=== PATIENT | female | born 1940 | race Caucasian/White ===

== ENCOUNTER 2019-03-06 01:47 | Emergency (ER) | payer MEDICARE, MEDICAID ==
[~2019-03-06] VITALS: Ht 162.6 cm; Wt 68.0 kg
[~2019-03-06 01:47] MED LIST: ALPR-624 PO; ASPI-1264 PO; CLOP75TA35 PO; GLYB-97 PO; HCTZ25T PO; HYDR-4383 PO; LEVO100T PO; LOSA100T13 PO; METH4TAB81 PO; NOR5T PO; ROSU10TA2 PO; SITA1TAB10 PO; VITC500T PO
[2019-03-06] MEDS ORDERED: morphine 4 MG/ML inj SYRINge IV ONE (01:55)
[2019-03-06] MEDS ORDERED: ondansetron/PF 4mg/2ml inj IV ONE (01:55)
[2019-03-06] MEDS ORDERED: iohexol 300mg/ml 100ml inj. ONE (01:56)
--- NOTE | 2019-03-06 03:09 | NUR ---
DEANGELO ROMERO MADE AWARE CT IS BACK. NO NEW ORDERS
--- NOTE | 2019-03-06 03:15 | NUR ---
[facility] CALLED OFF PER DR ROMERO
[2019-03-06] MEDS ORDERED: ONDA4TAB6 PO (03:16)
[2019-03-06] MEDS ORDERED: HYDR-3965 PO (03:16)
[2019-03-06 03:54] VITALS: BP 135/48
== END 2019-03-06 03:31 | disposition home or self-care (01) ==
LOC: ER 01:48
DX: S30.1XXA Contusion of abdominal wall, initial encounter (principal); S20.219A Contusion of unspecified front wall of thorax, initial encounter; I25.10 Atherosclerotic heart disease of native coronary artery without angina pectoris; I10 Essential (primary) hypertension; J44.9 Chronic obstructive pulmonary disease, unspecified; E11.9 Type 2 diabetes mellitus without complications; G89.29 Other chronic pain; Z98.61 Coronary angioplasty status; Z98.890 Other specified postprocedural states; Z88.2 Allergy status to sulfonamides; Z88.8 Allergy status to other drugs, medicaments and biological substances; Z79.82 Long term (current) use of aspirin; Z79.899 Other long term (current) drug therapy; W18.39XA Other fall on same level, initial encounter; Y93.89 Activity, other specified; Y92.009 Unspecified place in unspecified non-institutional (private) residence as the place of occurrence of the external cause; Y99.8 Other external cause status
CPT/HCPCS: 71260; 74177; 96374; 96375; 99284; J2270; J2405; Q9967

== ENCOUNTER 2021-12-11 10:49 | Inpatient (IN) | payer MEDICARE, MEDICAID ==
[~2021-12-11] VITALS: Ht 160 cm; Wt 65.8 kg
[~2021-12-11 10:49] MED LIST changes: -ALPR-624 PO; -ASPI-1264 PO; +CLOP75TA34 PO; -CLOP75TA35 PO; +DOXA4TAB3 PO; +FURO-150 PO; -GLYB-97 PO; -HCTZ25T PO; +INSU100I25 SQ; -LEVO100T PO; +LEVO88TA7 PO; -METH4TAB81 PO; -NOR5T PO; +PIOG45TA65 PO; +SERT25TA PO; -VITC500T PO
[2021-12-11 11:12] LABS: BASOPHILS # (AUTO) 0.1 X10'3 (0-0.2); BASOPHILS % (AUTO) 0.8 % (0-1); EOSINOPHILS # (AUTO) 0.1 X10'3 (0-0.9); EOSINOPHILS % (AUTO) 0.8 % (0-6); HEMATOCRIT 29.4 % (35.0-45.0); HEMOGLOBIN 9.3 g/dl (12.0-16.0); LYMPHOCYTES # (AUTO) 0.5 X10'3 (1.1-4.8); LYMPHOCYTES % (AUTO) 4.6 % (21-51); MEAN CORPUSCULAR HEMOGLOBIN 29.6 PG (27.0-31.0); MEAN CORPUSCULAR HGB CONC 31.7 g/dL (33.0-36.5); MEAN CORPUSCULAR VOLUME 93.4 FL (78-98); MEAN PLATELET VOLUME 8.1 FL (7.4-10.4); MONOCYTES # (AUTO) 0.8 X10'3 (0-0.9); MONOCYTES % (AUTO) 7.2 % (2-12); NEUTROPHILS # (AUTO) 9.8 X10'3 (1.8-7.7); NEUTROPHILS % (AUTO) 86.6 % (42-75); PLATELET COUNT 437 X10'3 (140-440); RED BLOOD COUNT 3.15 X10'6 (4.20-5.60); RED CELL DISTRIBUTION WIDTH 15.7 % (11.5-14.5); WHITE BLOOD COUNT 11.3 X10'3 (4.5-11.0)
[2021-12-11 11:24] LABS: ALANINE AMINOTRANSFERASE 18 U/L (12-78); ALBUMIN 2.5 G/DL (3.4-5.0); ALBUMIN/GLOBULIN RATIO 0.5 (1.1-1.5); ALKALINE PHOSPHATASE 72 IU/L (46-116); ANION GAP 2 (8-16); ASPARTATE AMINO TRANSFERASE 12 U/L (10-37); BILIRUBIN,TOTAL 0.2 MG/DL (0.1-1.0); BLOOD UREA NITROGEN 26 MG/DL (7-18); BUN/CREATININE RATIO 21.3 (6.6-38.0); CALCIUM 9.9 MG/DL (8.5-10.1); CHLORIDE 98 MMOL/L (99-107); CREATININE 1.22 MG/DL (0.40-0.90); GLUCOSE 156 MG/DL (70-104); POTASSIUM 4.9 MMOL/L (3.5-5.1); SODIUM 134 MMOL/L (135-145); TOTAL CARBON DIOXIDE 33.9 MMOL/L (24-32); TOTAL PROTEIN 7.1 G/DL (6.4-8.2); eGFR 42 ML/MIN
[2021-12-11] MEDS ORDERED: iohexol 350MG/ML 100ml bottle IV ONE (12:41)
[2021-12-11] MEDS ORDERED: azithromycin/NS 500mg/250ml 250 ML IV ONE (13:45)
[2021-12-11] MEDS ORDERED: CefTRIAXone/D5W-Rocephin 1gm 50 ML IV ONE (13:45)
[2021-12-11] MEDS ORDERED: furosemide 10 MG/1 ML 10ml inj IV ONE (13:55)
[2021-12-11] MEDS ORDERED: potassium Cl 20 mEq SR tablet PO PRN ×2 (14:00)
[2021-12-11] MEDS ORDERED: HYDROcodone/acetaminophen 5mg/325mg tablet PO PRN (14:00)
[2021-12-11] MEDS ORDERED: potassium Cl 40MEQ/1/2NS 520ml 520 ML IV PRN (14:00)
[2021-12-11] MEDS ORDERED: bisacodyl 10mg suppository rectal RC PRN (14:00)
[2021-12-11] MEDS ORDERED: ondansetron/PF 4mg/2ml inj IV PRN (14:00)
[2021-12-11] MEDS ORDERED: magnesium 4gm in 100ml NS 100 ML IV PRN (14:00)
[2021-12-11] MEDS ORDERED: magnesium hydroxide 30ml (MOM) UD suspension PO PRN (14:00)
[2021-12-11] MEDS ORDERED: morphine 2 MG/ML inj. syringe IV PRN ×2 (14:00)
[2021-12-11] MEDS ORDERED: magnesium Cl slow-release 64mg tablet PO PRN (14:00)
[2021-12-11] MEDS ORDERED: diphenhydrAMINE 25mg capsule PO PRN (14:00)
[2021-12-11] MEDS ORDERED: ondansetron 4mg rapidly disintigrating tab PO PRN (14:00)
[2021-12-11] MEDS ORDERED: acetaminophen 650mg rectal suppository RC PRN (14:00)
[2021-12-11] MEDS ORDERED: ipratropium/albuterol 3ml nebule NEB PRN (14:00)
[2021-12-11] MEDS ORDERED: acetaminophen 325mg tablet PO PRN ×2 (14:00)
[2021-12-11] MEDS ORDERED: mag hydrox/Alum hydrox/simeth 30ml oral suspension PO PRN (14:00)
--- NOTE | 2021-12-11 15:25 | NUR ---
placed pt on pure wick at this time for I&O accuracy. vitally stable with 02 sat ranging from 84-91 at this time on 6L nasal canula, will reasses in one hour post lasix
[2021-12-11 16:03] LABS: MAGNESIUM 1.9 MG/DL (1.5-2.4)
[2021-12-11] MEDS ORDERED: OXYC1TAB17 PO (16:55)
[2021-12-11] MEDS ORDERED: AMIO200T61 PO (16:55)
[2021-12-11] MEDS ORDERED: CLON0.1T PO (16:55)
[2021-12-11] MEDS ORDERED: ONDA-103 PO (16:55)
[2021-12-11] MEDS ORDERED: SERT-433 PO (16:55)
[2021-12-11] MEDS ORDERED: AMLO5TAB16 PO (16:55)
[2021-12-11] MEDS ORDERED: GLIP5TAB13 PO (16:55)
[2021-12-11] MEDS ORDERED: METO5TAB98 PO (16:55)
[2021-12-11] MEDS ORDERED: INSU100V11 SQ (16:55)
[2021-12-11] MEDS ORDERED: POLY119P2 PO (17:03)
[2021-12-11] MEDS ORDERED: LACT10SO3 PO (17:03)
[2021-12-11] MEDS ORDERED: MICO57CR2 TP (17:03)
[2021-12-11] MEDS ORDERED: SENN8.6T19 PO (17:03)
[2021-12-11] MEDS ORDERED: BISA10SU60 RC (17:03)
[2021-12-11] MEDS ORDERED: sennosides 8.6mg tablet PO PRN (18:00)
[2021-12-11] MEDS ORDERED: cloNIDine 0.1 mg tablet PO PRN (18:00)
[2021-12-11] MEDS: HYDROcodone/acetaminophen 10/325mg tab PO PRN ×2 (18:09→23:30)
[2021-12-11 19:31] LABS: HEMOGLOBIN A1C 7.8 % (4.5-6.2)
[2021-12-11] MEDS: amiodarone 200mg tablet PO SCH (19:36)
[2021-12-11] MEDS: docusate sod 100mg capsule PO SCH (19:36)
[2021-12-11] MEDS: furosemide 40mg/4ml inj IV SCH (19:36)
[2021-12-11] MEDS: K and/or MAG REPLACEMENT MC SCH (19:38)
[2021-12-11] MEDS ORDERED: temazepam 15mg capsule PO PRN (21:00)
[2021-12-12] VITALS (8 sets, daily range): BP systolic 141–179; BP diastolic 49–63
[2021-12-12] MEDS: HYDROcodone/acetaminophen 10/325mg tab PO PRN ×5 (03:33→23:12)
[2021-12-12 06:22] LABS: BASOPHILS # (AUTO) 0.1 X10'3 (0-0.2); BASOPHILS % (AUTO) 1.1 % (0-1); EOSINOPHILS # (AUTO) 0.1 X10'3 (0-0.9); EOSINOPHILS % (AUTO) 0.9 % (0-6); HEMATOCRIT 27.7 % (35.0-45.0); HEMOGLOBIN 9.1 g/dl (12.0-16.0); LYMPHOCYTES # (AUTO) 0.8 X10'3 (1.1-4.8); LYMPHOCYTES % (AUTO) 9.3 % (21-51); MEAN CORPUSCULAR HEMOGLOBIN 29.7 PG (27.0-31.0); MEAN CORPUSCULAR HGB CONC 32.7 g/dL (33.0-36.5); MEAN PLATELET VOLUME 8.1 FL (7.4-10.4); MONOCYTES # (AUTO) 0.7 X10'3 (0-0.9); MONOCYTES % (AUTO) 9.1 % (2-12); NEUTROPHILS # (AUTO) 6.5 X10'3 (1.8-7.7); NEUTROPHILS % (AUTO) 79.6 % (42-75); PLATELET COUNT 428 X10'3 (140-440); RED BLOOD COUNT 3.05 X10'6 (4.20-5.60); RED CELL DISTRIBUTION WIDTH 15.4 % (11.5-14.5); WHITE BLOOD COUNT 8.2 X10'3 (4.5-11.0)
[2021-12-12 06:34] LABS: ALANINE AMINOTRANSFERASE 15 U/L (12-78); ALBUMIN 2.3 G/DL (3.4-5.0); ALBUMIN/GLOBULIN RATIO 0.6 (1.1-1.5); ALKALINE PHOSPHATASE 67 IU/L (46-116); ANION GAP 4 (8-16); ASPARTATE AMINO TRANSFERASE 11 U/L (10-37); BILIRUBIN,TOTAL 0.3 MG/DL (0.1-1.0); BLOOD UREA NITROGEN 23 MG/DL (7-18); BUN/CREATININE RATIO 17.8 (6.6-38.0); CALCIUM 9.3 MG/DL (8.5-10.1); CHLORIDE 98 MMOL/L (99-107); CREATININE 1.29 MG/DL (0.40-0.90); GLUCOSE 169 MG/DL (70-104); MAGNESIUM 1.9 MG/DL (1.5-2.4); POTASSIUM 3.8 MMOL/L (3.5-5.1); SODIUM 137 MMOL/L (135-145); TOTAL CARBON DIOXIDE 35.1 MMOL/L (24-32); TOTAL PROTEIN 6.4 G/DL (6.4-8.2); eGFR 40 ML/MIN
--- NOTE | 2021-12-12 06:53 | NUR ---
Patient in room PCU 3019. I have received report from Sushma KULKARNI and had the opportunity to ask questions and assume patient care.
[2021-12-12] MEDS: amiodarone 200mg tablet PO SCH ×3 (07:58→20:15)
[2021-12-12] MEDS: levoTHYROXINE 88mcg tablet PO SCH ×2 (07:58→08:25)
[2021-12-12] MEDS: docusate sod 100mg capsule PO SCH ×2 (07:58→19:53)
[2021-12-12] MEDS: losartan 50mg tablet PO SCH (07:59)
[2021-12-12] MEDS: polyethylene glycol 3350 17gm powd pack PO SCH (07:59)
[2021-12-12] MEDS: amLODIPine 5mg tablet PO SCH (08:00)
[2021-12-12] MEDS: clopidogrel 75mg tablet PO SCH (08:00)
[2021-12-12] MEDS ORDERED: sertraline 50mg tablet PO SCH (08:00)
[2021-12-12] MEDS: K and/or MAG REPLACEMENT MC SCH (08:00)
[2021-12-12] MEDS: furosemide 40mg/4ml inj IV SCH ×2 (08:38→13:00)
[2021-12-12] MEDS: CefTRIAXone/D5W-Rocephin 1gm 50 ML IV SCH (08:38)
[2021-12-12] MEDS: azithromycin/NS 500mg/250ml 250 ML IV SCH (10:01)
[2021-12-12] MEDS ORDERED: glucagon, human recombinant 1mg kit SUBCUT PRN (11:40)
[2021-12-12] MEDS ORDERED: MESSAGE TO PHARMACY PO ONE (11:40)
[2021-12-12] MEDS ORDERED: dextrose 50%-water 50ml dispensing syringe IV PRN ×2 (11:40)
[2021-12-12] MEDS ORDERED: DEXTROSE 15 GM of carb/4 tabs (each vial/BOTTLE has 4 tablets) PO PRN ×2 (11:40)
--- NOTE | 2021-12-12 12:18 | NUR ---
Malnutrition/DM Consults: Pt admit DX acute respiratory failure, COPD, and bilateral pleural effusions per EMR. 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 Pt w/ mild weakness, no edema/wounds, appears WD/WN per MD note, and PO 100% first heart healthy/fluid-restricted meal this AM per EMR. Pending scaled wt this admit though current reported wt 4kg higher than bed scaled wt recent prior admit August this year per EMR. Pt lacks minimum malnutrition criteria at this time. Pt hx DM A1C 7.8% appropriate given age. Will monitor for nutrition intervention needs this admit. Addendum: 12/12/21 at [address] Amended: Links added.
[2021-12-12 12:44] LABS: BODY FLUID PH (NON-PLEURAL) 7.5
[2021-12-12 13:07] LABS: GLUCOSE,BODY FLUID 213 MG/DL; LDH,BODY FLUID 61 U/L; TOTAL PROTEIN,BODY FLUID 2.1 G/DL
[2021-12-12 13:23] LABS: BFAPPEAR HAZY
[2021-12-12 13:24] LABS: BF RBC COUNT 74 /CU MM; BF WBC COUNT 68 /CU MM (0-1000); BFCOLOR YELLOW; BFVOLUME 60 ML
[2021-12-12 13:27] LABS: EOSINOPHILS,BODY FLUID 1 %; LYMPHOCYTES,BODY FLUID 58 %; MONOCYTES,BODY FLUID 23 %; NEUTROPHILS,BODY FLUID 18 %
[2021-12-12] MEDS: insulin Lispro (HumaLOG) vial - multi-dose SQ SCH ×2 (13:55→19:52)
--- NOTE | 2021-12-12 18:30 | NUR ---
Patient in room PCU 3019. I have received report from Danielle and had the opportunity to ask questions and assume patient care.
--- NOTE | 2021-12-12 18:59 | NUR ---
Problems reprioritized. Patient report given, questions answered & plan of care reviewed with Roslyn Merlos, patient stable at transfer of care.
[2021-12-12] MEDS: insulin glargine (Lantus) pen - multi-dose SQ SCH (19:53)
--- NOTE | 2021-12-12 20:19 | NUR ---
Called and spoke with Dr. Rebolledo due to amiodarone po to be given and hr 51. No parameters present. stated ok to give amiodarone po. Addendum: 12/12/21 at 2306 by Arturo Crocker RN Called and spoke with Dr. Rebolledo due to bp 179/61, hr 50 and not within parameters to given prn clonidine. Also explained to that pt is wanting [place] 10/325 but no hr parameter to give. stated ok to give clonidine x1 dose as well as Norco10/325.
[2021-12-13] MEDS: K and/or MAG REPLACEMENT MC SCH ×3 (01:15→20:35)
[2021-12-13 02:00] VITALS: BP 137/54
[2021-12-13 06:07] LABS: BASOPHILS # (AUTO) 0.1 X10'3 (0-0.2); EOSINOPHILS # (AUTO) 0.2 X10'3 (0-0.9); EOSINOPHILS % (AUTO) 3.2 % (0-6); HEMATOCRIT 28.8 % (35.0-45.0); HEMOGLOBIN 9.1 g/dl (12.0-16.0); LYMPHOCYTES # (AUTO) 1.1 X10'3 (1.1-4.8); LYMPHOCYTES % (AUTO) 14.5 % (21-51); MEAN CORPUSCULAR HGB CONC 31.6 g/dL (33.0-36.5); MEAN CORPUSCULAR VOLUME 91.9 FL (78-98); MONOCYTES # (AUTO) 0.9 X10'3 (0-0.9); MONOCYTES % (AUTO) 11.9 % (2-12); NEUTROPHILS # (AUTO) 5.2 X10'3 (1.8-7.7); NEUTROPHILS % (AUTO) 69.4 % (42-75); PLATELET COUNT 453 X10'3 (140-440); RED BLOOD COUNT 3.13 X10'6 (4.20-5.60); RED CELL DISTRIBUTION WIDTH 15.1 % (11.5-14.5); WHITE BLOOD COUNT 7.5 X10'3 (4.5-11.0)
--- NOTE | 2021-12-13 06:20 | NUR ---
Problems reprioritized. Patient report given, questions answered & plan of care reviewed with Donte. Pt sleeping and in no acute distress at time of handoff.
[2021-12-13 06:33] LABS: ALANINE AMINOTRANSFERASE 15 U/L (12-78); ALBUMIN 2.3 G/DL (3.4-5.0); ALBUMIN/GLOBULIN RATIO 0.6 (1.1-1.5); ALKALINE PHOSPHATASE 63 IU/L (46-116); ANION GAP 2 (8-16); ASPARTATE AMINO TRANSFERASE 12 U/L (10-37); BILIRUBIN,TOTAL 0.2 MG/DL (0.1-1.0); BLOOD UREA NITROGEN 25 MG/DL (7-18); BUN/CREATININE RATIO 17.4 (6.6-38.0); CALCIUM 9.7 MG/DL (8.5-10.1); CHLORIDE 98 MMOL/L (99-107); CREATININE 1.44 MG/DL (0.40-0.90); GLUCOSE 96 MG/DL (70-104); MAGNESIUM 2.1 MG/DL (1.5-2.4); PHOSPHORUS 3.8 MG/DL (2.3-4.5); POTASSIUM 3.8 MMOL/L (3.5-5.1); SODIUM 137 MMOL/L (135-145); TOTAL CARBON DIOXIDE 36.7 MMOL/L (24-32); TOTAL PROTEIN 6.4 G/DL (6.4-8.2); eGFR 35 ML/MIN
[2021-12-13 07:07] VITALS: BP 98/56
[2021-12-13] MEDS: amLODIPine 5mg tablet PO SCH (08:00)
[2021-12-13] MEDS: levoTHYROXINE 88mcg tablet PO SCH (08:04)
[2021-12-13] MEDS: losartan 50mg tablet PO SCH (08:04)
[2021-12-13] MEDS: amiodarone 200mg tablet PO SCH ×2 (08:04→20:48)
[2021-12-13] MEDS: clopidogrel 75mg tablet PO SCH (08:04)
[2021-12-13] MEDS: docusate sod 100mg capsule PO SCH ×2 (08:05→20:48)
[2021-12-13] MEDS: polyethylene glycol 3350 17gm powd pack PO SCH (08:05)
[2021-12-13] MEDS: sertraline 25mg tablet PO SCH (08:05)
[2021-12-13] MEDS: furosemide 40mg/4ml inj IV SCH ×2 (08:05→20:48)
[2021-12-13] MEDS: HYDROcodone/acetaminophen 10/325mg tab PO PRN ×4 (08:11→20:56)
[2021-12-13] MEDS: CefTRIAXone/D5W-Rocephin 1gm 50 ML IV SCH (08:11)
[2021-12-13] MEDS: azithromycin/NS 500mg/250ml 250 ML IV SCH (08:12)
[2021-12-13 11:00] VITALS: BP 110/52
[2021-12-13 15:00] VITALS: BP 132/61
[2021-12-13 18:00] VITALS: BP 95/41
[2021-12-13] MEDS: insulin Lispro (HumaLOG) vial - multi-dose SQ SCH (20:47)
[2021-12-13 22:03] VITALS: BP 107/55
[2021-12-13] MEDS: insulin glargine (Lantus) pen - multi-dose SQ SCH (22:51)
[2021-12-14 01:41] VITALS: BP 109/49
[2021-12-14] MEDS: HYDROcodone/acetaminophen 10/325mg tab PO PRN ×3 (01:51→12:24)
[2021-12-14 07:00] VITALS: BP 174/61
[2021-12-14] MEDS: CefTRIAXone/D5W-Rocephin 1gm 50 ML IV SCH (07:09)
[2021-12-14] MEDS: furosemide 40mg/4ml inj IV SCH (07:09)
[2021-12-14] MEDS: amiodarone 200mg tablet PO SCH (07:10)
[2021-12-14] MEDS: clopidogrel 75mg tablet PO SCH (07:10)
[2021-12-14] MEDS: losartan 50mg tablet PO SCH (07:11)
[2021-12-14] MEDS: polyethylene glycol 3350 17gm powd pack PO SCH (07:12)
[2021-12-14] MEDS: levoTHYROXINE 88mcg tablet PO SCH (07:12)
[2021-12-14] MEDS: sertraline 25mg tablet PO SCH (07:12)
[2021-12-14] MEDS: amLODIPine 5mg tablet PO SCH (07:12)
[2021-12-14] MEDS: azithromycin/NS 500mg/250ml 250 ML IV SCH (07:13)
[2021-12-14] MEDS: docusate sod 100mg capsule PO SCH (07:13)
[2021-12-14 08:13] LABS: BASOPHILS # (AUTO) 0.1 X10'3 (0-0.2); BASOPHILS % (AUTO) 1.2 % (0-1); EOSINOPHILS # (AUTO) 0.2 X10'3 (0-0.9); EOSINOPHILS % (AUTO) 2.6 % (0-6); HEMOGLOBIN 9.9 g/dl (12.0-16.0); LYMPHOCYTES # (AUTO) 0.9 X10'3 (1.1-4.8); LYMPHOCYTES % (AUTO) 11.8 % (21-51); MEAN CORPUSCULAR HEMOGLOBIN 29.9 PG (27.0-31.0); MEAN CORPUSCULAR HGB CONC 32.8 g/dL (33.0-36.5); MEAN CORPUSCULAR VOLUME 91.3 FL (78-98); MEAN PLATELET VOLUME 7.8 FL (7.4-10.4); MONOCYTES # (AUTO) 0.8 X10'3 (0-0.9); MONOCYTES % (AUTO) 10.6 % (2-12); NEUTROPHILS # (AUTO) 5.6 X10'3 (1.8-7.7); NEUTROPHILS % (AUTO) 73.8 % (42-75); PLATELET COUNT 528 X10'3 (140-440); RED BLOOD COUNT 3.29 X10'6 (4.20-5.60); RED CELL DISTRIBUTION WIDTH 15.3 % (11.5-14.5); WHITE BLOOD COUNT 7.6 X10'3 (4.5-11.0)
[2021-12-14 08:33] LABS: ALANINE AMINOTRANSFERASE 15 U/L (12-78); ALBUMIN 2.5 G/DL (3.4-5.0); ALBUMIN/GLOBULIN RATIO 0.6 (1.1-1.5); ALKALINE PHOSPHATASE 69 IU/L (46-116); ANION GAP 6 (8-16); ASPARTATE AMINO TRANSFERASE 14 U/L (10-37); BILIRUBIN,TOTAL 0.2 MG/DL (0.1-1.0); BLOOD UREA NITROGEN 22 MG/DL (7-18); BUN/CREATININE RATIO 16.1 (6.6-38.0); CALCIUM 9.7 MG/DL (8.5-10.1); CHLORIDE 96 MMOL/L (99-107); CREATININE 1.37 MG/DL (0.40-0.90); GLUCOSE 126 MG/DL (70-104); PHOSPHORUS 3.7 MG/DL (2.3-4.5); POTASSIUM 3.5 MMOL/L (3.5-5.1); SODIUM 137 MMOL/L (135-145); TOTAL CARBON DIOXIDE 34.8 MMOL/L (24-32); eGFR 37 ML/MIN
[2021-12-14] MEDS: K and/or MAG REPLACEMENT MC SCH (08:55)
[2021-12-14 11:00] VITALS: BP 131/63
[2021-12-14] MEDS: insulin Lispro (HumaLOG) vial - multi-dose SQ SCH (12:23)
--- NOTE | 2021-12-14 15:34 | NUR ---
Called report to SHAD Zimmer at [facility]. Pt Be transported Via BLS. Given IV Zolfran prior to transport. IV access removed.
== END 2021-12-14 15:38 | DRG 193 ==
LOC: ER 10:49 → ED HOLD 14:07 → PCU 3S 12-12 01:50
PROVIDERS: ADMIT Family Medicine; ATTEND Family Medicine
PROC: B32T1ZZ Computerized Tomography (CT Scan) of Left Pulmonary Artery using Low Osmolar Contrast (ICD-10-PCS; 2021-12-11)
PROC: B3201ZZ Computerized Tomography (CT Scan) of Thoracic Aorta using Low Osmolar Contrast (ICD-10-PCS; 2021-12-11)
PROC: B32S1ZZ Computerized Tomography (CT Scan) of Right Pulmonary Artery using Low Osmolar Contrast (ICD-10-PCS; 2021-12-11)
PROC: 0W9B3ZX Drainage of Left Pleural Cavity, Percutaneous Approach, Diagnostic (ICD-10-PCS; principal; 2021-12-12)
PROC: 0W993ZX Drainage of Right Pleural Cavity, Percutaneous Approach, Diagnostic (ICD-10-PCS; 2021-12-12)
DX: J18.9 Pneumonia, unspecified organism (principal); J96.01 Acute respiratory failure with hypoxia; I13.0 Hypertensive heart and chronic kidney disease with heart failure and stage 1 through stage 4 chronic kidney disease, or unspecified chronic kidney disease; I50.30 Unspecified diastolic (congestive) heart failure; J44.0 Chronic obstructive pulmonary disease with (acute) lower respiratory infection; J44.1 Chronic obstructive pulmonary disease with (acute) exacerbation; N17.9 Acute kidney failure, unspecified; J91.8 Pleural effusion in other conditions classified elsewhere; Z20.822 Contact with and (suspected) exposure to COVID-19; E03.9 Hypothyroidism, unspecified; F32.A Depression, unspecified; G89.29 Other chronic pain; E11.22 Type 2 diabetes mellitus with diabetic chronic kidney disease; E11.51 Type 2 diabetes mellitus with diabetic peripheral angiopathy without gangrene; E78.00 Pure hypercholesterolemia, unspecified; I25.10 Atherosclerotic heart disease of native coronary artery without angina pectoris; M81.0 Age-related osteoporosis without current pathological fracture; N18.9 Chronic kidney disease, unspecified; Z86.73 Personal history of transient ischemic attack (TIA), and cerebral infarction without residual deficits; Z87.81 Personal history of (healed) traumatic fracture; Z87.891 Personal history of nicotine dependence; Z88.2 Allergy status to sulfonamides; Z88.8 Allergy status to other drugs, medicaments and biological substances; Z79.02 Long term (current) use of antithrombotics/antiplatelets
CPT/HCPCS: 32555; 36415; 71045; 71275; 80053; 82945; 82948; 83036; 83605; 83615; 83735; 83880; 83986; 84100; 84132; 84145; 84157; 84484; 85025; 85379; 87040; 87070; 87081; 87635; 87811; 89051; 93005; 93306; 94760; 96374; 97161; 97530; 99285; A6213; A6250; C9803; G0378; J0456; J0696; J1815; J1940; J2270; J2405; J3490; J7040; Q9967

== ENCOUNTER 2022-08-09 10:30 | Emergency (ER) | payer MEDICARE, MEDICAID ==
[~2022-08-09] VITALS: Ht 160 cm; Wt 65.0 kg
[~2022-08-09 10:30] MED LIST changes: +AMI200T PO; +AMLO5TAB16 PO; +BISA10SU60 RC; +CLON0.1T PO; -DOXA4TAB3 PO; -FURO-150 PO; +GLIP5TAB13 PO; -HYDR-4383 PO; -INSU100I25 SQ; +INSU100I27 SQ; +INSU100V11 SQ; +LACT10SO3 PO; +METO5TAB98 PO; +MICO57CR2 TP; +ONDA-103 PO; +OXYC1TAB17 PO; -PIOG45TA65 PO; +POLY119P2 PO; +SENN8.6T19 PO; +SERT-433 PO; -SERT25TA PO; -SITA1TAB10 PO
[2022-08-09] MEDS ORDERED: oxyCODONE/APAP 5-325mg tablet PO ONE (14:05)
--- NOTE | 2022-08-09 14:46 | NUR ---
PER ZULMA RN PT WILL TRANPORT TO [facility] FROM [facility]. RN WILL CONTACT [facility] AND SCHEDULE TRANSPORTATION.
--- NOTE | 2022-08-09 14:51 | NUR ---
RN CALLED PT SON KRISTINA AND CONFIRMED THAT PT IS SUPPOSED TO BE TRANSPORTED BACK TO [facility]. RN CALLED [facility] AND SPOKE WITH EEG TECHNOLOGIST KENDRA AND SHE COULD NOT CONFIRM THAT PT WOULD RETURN THERE. KENDRA WILL CONFIRM WITH THE GYROSCOPIC ENGINEERING TECHNICIAN AND GET RM # AND CALL ED BACK FOR REPORT.
[2022-08-09 15:05] VITALS: BP 172/74
--- NOTE | 2022-08-09 15:28 | NUR ---
SHAD CONFIRMED WITH SEAN CLEMONS THAT PT WILL BE TRANSPORTED TO [facility] BY 4:30 BY UCHE CARGO. RN CALLED AND GAVE REPORT TO EMILIO KULKARNI.
== END 2022-08-09 16:27 | disposition home or self-care (01) ==
LOC: ER 10:31
DX: M25.561 Pain in right knee (principal); M25.562 Pain in left knee; I11.0 Hypertensive heart disease with heart failure; J44.9 Chronic obstructive pulmonary disease, unspecified; E11.9 Type 2 diabetes mellitus without complications; E03.9 Hypothyroidism, unspecified
CPT/HCPCS: 73560; 99285

== ENCOUNTER 2022-11-24 06:09 | Emergency (ER) | payer MEDICARE, MEDICAID ==
--- NOTE | 2022-11-24 06:38 | NUR ---
[facility] WAS NOTIFIED OF PT'S PASSING. WAS NOTIFIED THAT PT'S GRANDSON WILL BE ARRIVING SOON.
--- NOTE | 2022-11-24 06:47 | NUR ---
0606 Patient arrived paced by EMS. 06 50 mg of Teo given 0615 10 mg of Etomidate given 06 1 amp bicarb 06 10 mL of calcium chloride given, ETT placed size 8, 26 at the teeth 0618 CPR started 06 0.5 mg of epi given, BP 76/54 0619 Stopped CPR and checked for pulse, no pulse 0620 Ultrasound used looking for femoral pulse, no pulse found 06 CPR resumed, 1 amp of bicarb given 06 Calcium given, 1 L NS pressure bag started 06 Femoral line started 06 Pulse check 06 rocky labs, pulse check, 1 mg of epi given, NGT 18 fr placed, stomach contents returned 06 CPR resumed 628 Ultrasound of heart 629 Time of called People present [place] [facility] [place] Rene, SHAD Blackwell, Trung RT, Brittnee FRESH FOODS TECHNICIAN, Kaleigh SABA, SHAD Hennessy Addendum: 11/24/22 at 0716 by BEN Note written by Vanessa Saul.
--- NOTE | 2022-11-24 06:55 | NUR ---
pt kai helped with compressions x3
[2022-11-24 07:10] LABS: BASOPHILS % (AUTO) 0.1 % (0-1); EOSINOPHILS # (AUTO) 0.1 X10'3 (0-0.9); EOSINOPHILS % (AUTO) 1.2 % (0-6); HEMATOCRIT 33.8 % (35.0-45.0); HEMOGLOBIN 10.3 g/dl (12.0-16.0); LYMPHOCYTES # (AUTO) 5.4 X10'3 (1.1-4.8); MEAN CORPUSCULAR HEMOGLOBIN 29.5 PG (27.0-31.0); MEAN CORPUSCULAR HGB CONC 30.5 g/dL (33.0-36.5); MEAN CORPUSCULAR VOLUME 96.5 FL (78-98); MEAN PLATELET VOLUME 9.6 FL (7.4-10.4); MONOCYTES # (AUTO) 0.9 X10'3 (0-0.9); MONOCYTES % (AUTO) 7.6 % (2-12); NEUTROPHILS # (AUTO) 5.3 X10'3 (1.8-7.7); NEUTROPHILS % (AUTO) 45.1 % (42-75); PLATELET COUNT 157 X10'3 (140-440); RED BLOOD COUNT 3.51 X10'6 (4.20-5.60); RED CELL DISTRIBUTION WIDTH 15.3 % (11.5-14.5); WHITE BLOOD COUNT 11.8 X10'3 (4.5-11.0)
--- NOTE | 2022-11-24 07:13 | NUR ---
please contact pt's nephew if any questions, Joseph Woods [phone]
--- NOTE | 2022-11-24 07:15 | NUR ---
0606 Patient arrived paced by EMS. 0614 50 mg of Teo given 0615 10 mg of Etomidate given 0616 1 amp bicarb 0617 10 mL of calcium chloride given, ETT placed size 8, 26 at the teeth 0618 CPR started 06 0.5 mg of epi given, BP 76/54 0619 Stopped CPR and checked for pulse, no pulse 06 Ultrasound used looking for femoral pulse, no pulse found 06 CPR resumed, 1 amp of bicarb given 06 Calcium given, 1 L NS pressure bag started 06 Femoral line started 06 Pulse check 06 rocky labs, pulse check, 1 mg of epi given, NGT 18 fr placed, stomach contents returned 06 CPR resumed 628 Ultrasound of heart 629 Time of called People present at code, Dr. Rene, Rosalva, RN, Trung RT, Brittnee TABLEAU ANALYST, Kaleigh DANIELN, Gerhard RN
--- NOTE | 2022-11-24 07:22 | NUR ---
Stoney SABA II at [facility], reports that while giving care at facility pt spontaneously started agonal breathing leading to respiratory arrest.
[2022-11-24 07:31] LABS: ALANINE AMINOTRANSFERASE 412 U/L (12-78); ALBUMIN 1.5 G/DL (3.4-5.0); ALBUMIN/GLOBULIN RATIO 0.6 (1.1-1.5); ALKALINE PHOSPHATASE 57 IU/L (46-116); ANION GAP 10 (8-16); ASPARTATE AMINO TRANSFERASE 378 U/L (10-37); BILIRUBIN,TOTAL 0.1 MG/DL (0.1-1.0); BLOOD UREA NITROGEN 37 MG/DL (7-18); BUN/CREATININE RATIO 21.6 (10.0-20.0); CHLORIDE 110 MMOL/L (99-107); CREATININE 1.71 MG/DL (0.40-0.90); GLUCOSE 390 MG/DL (70-104); PRO BRAIN NATRIURETIC PEPTIDE 1364 PG/ML (0-450); SODIUM 148 MMOL/L (135-145); TOTAL CARBON DIOXIDE 27.6 MMOL/L (24-32); TOTAL PROTEIN 4.1 G/DL (6.4-8.2); eGFR 29 ML/MIN
[2022-11-24 07:33] LABS: CALCIUM 16.1 MG/DL (8.5-10.1)
--- NOTE | 2022-11-24 07:52 | NUR ---
SPOKE WITH EDUARDO PONCE SHIP STEWARD [facility] WHO AFTER TAKING INFORMATION SAID THAT THE BODY MAY BE RELEASED TO THE HOME AND THAT THE PRIMARY MD SHOULD SIGN THE CERT.
--- NOTE | 2022-11-24 07:57 | NUR ---
Stefany Daley from [facility] advises that they do want to harvest tissues, report #[id number]. RN waiting on a call back from the [facility]
[2022-11-24] MEDS ORDERED: sod chloride 0.9% 10ml flush syringe IV ONE (08:00)
[2022-11-24] MEDS ORDERED: epiNEPHrine 0.1mg/ml 10ml syringe ONE (08:00)
[2022-11-24] MEDS ORDERED: sodium bicarbonate (8.4%) 1 mEq/ml syringe ONE (08:00)
[2022-11-24] MEDS ORDERED: etomidate 2mg/ml inj. ONE (08:00)
[2022-11-24] MEDS ORDERED: calcium chloride 100 MG/1 ML inj IV ONE (08:00)
[2022-11-24] MEDS ORDERED: rocuronium 10mg/ml inj IV ONE (08:00)
[2022-11-24 08:16] LABS: PLATELET ESTIMATE NORMAL; TOTAL CELLS COUNTED 100
[2022-11-24 08:17] LABS: ANISOCYTOSIS FEW; POIKILOCYTOSIS FEW
--- NOTE | 2022-11-24 08:20 | NUR ---
gave report to anders from [facility], they will send a flower buncher or picker person for the pt.
--- NOTE | 2022-11-24 09:45 | NUR ---
yokasta and xavier arrived at 0940 for pt pickup
== END 2022-11-24 09:47 ==
LOC: ER 06:10
DX: I46.9 Cardiac arrest, cause unspecified (principal); E78.00 Pure hypercholesterolemia, unspecified; I10 Essential (primary) hypertension; J44.9 Chronic obstructive pulmonary disease, unspecified; E11.9 Type 2 diabetes mellitus without complications; E03.9 Hypothyroidism, unspecified; Z88.8 Allergy status to other drugs, medicaments and biological substances; Z88.2 Allergy status to sulfonamides; Z79.899 Other long term (current) drug therapy; Z79.84 Long term (current) use of oral hypoglycemic drugs
CPT/HCPCS: 31500; 36415; 80053; 83605; 83880; 84145; 84484; 85007; 85025; 92950; 93005; 99285; J0171; J3490; J7030; C1751